=== PATIENT | male | born 1990 | race Caucasian/White ===

== ENCOUNTER 2020-10-05 07:52 | Emergency (ER) | payer SELFPAY ==
[2020-10-05 08:01] VITALS: BP 107/66; PULSE 63; TEMP 97.7; BMI 24.0
[2020-10-05] MEDS ORDERED: METOCLOPRAMIDE HCL INJECTION 10 MG/2 ML VIAL IVPB ONE (08:18)
[2020-10-05] MEDS ORDERED: ACETAMINOPHEN 1000 MG/100 ML VIAL (NON FORMULARY) IVPB ONE (08:18)
[2020-10-05] MEDS ORDERED: SODIUM CHLORIDE 1,000 ML IV STA ×2 (08:18→09:55)
[2020-10-05] MEDS ORDERED: ACETAMINOPHEN INJECTION 100 ML IVPB ONE (08:34)
[2020-10-05] MEDS ORDERED: METOCLOPRAMIDE HCL INJECTION 10 MG/2 ML VIAL ONE (08:34)
[2020-10-05 09:28] LABS: BASO % 0.9 % (0-2.0); EOS % 4.4 % (0-4.5); HEMATOCRIT 43.5 % (35.4-49); HEMOGLOBIN 14.9 GM/dL (11.7-16.9); LYMPH % 28.7 % (8-40); MCH 31.9 pg (25.7-33.7); MCHC 34.2 g/dl (32.0-35.9); MEAN CELL VOLUME 93.2 fl (80-96); MONO % 7.3 % (3.8-10.2); NEUT % 58.7 % (42.8-82.8); PLATELET COUNT 243 K/MM3 (134-434); RBC 4.67 M/mm3 (4.00-5.60); RDW 12.6 % (11.9-15.9); WHITE BLOOD COUNT 5.4 K/mm3 (4.0-10.0)
[2020-10-05 09:41] LABS: POTASSIUM 3.7 mmol/L (3.5-5.1)
[2020-10-05 09:43] LABS: ALBUMIN 4.2 g/dl (3.4-5.0); BLOOD UREA NITROGEN 12.8 mg/dL (7-18); CALCIUM 8.8 mg/dL (8.5-10.1)
[2020-10-05 09:46] LABS: CREATININE 0.8 mg/dL (0.55-1.3)
[2020-10-05 09:48] LABS: BILIRUBIN,TOTAL 0.4 mg/dL (0.2-1); TOT PROT 7.5 g/dl (6.4-8.2)
== END 2020-10-05 10:52 | disposition home or self-care (01) ==
LOC: JER 07:52
PROC: 3E0333Z Introduction of Anti-inflammatory into Peripheral Vein, Percutaneous Approach (ICD-10-PCS; principal; 2020-10-05)
PROC: 3E033GC Introduction of Other Therapeutic Substance into Peripheral Vein, Percutaneous Approach (ICD-10-PCS; 2020-10-05)
PROC: 3E0337Z Introduction of Electrolytic and Water Balance Substance into Peripheral Vein, Percutaneous Approach (ICD-10-PCS; 2020-10-05)
PROC: 3E0337Z Introduction of Electrolytic and Water Balance Substance into Peripheral Vein, Percutaneous Approach (ICD-10-PCS; 2020-10-05)
DX: G43.009 Migraine without aura, not intractable, without status migrainosus (principal)
CPT/HCPCS: 36415; 70450-TC; 80053; 85025; 99284-25; C9803; J0131; U0003